=== PATIENT | male | born 1970 | race American Indian/Alaskan Native ===

== ENCOUNTER 2022-02-03 12:20 | Emergency (ER) | payer SELFPAY ==
[2022-02-03 13:19] LABS: Bacteria,Urine 1+ /HPF (Negative); Bilirubin,Urine NEG (Negative); Blood,Urine NEG (Negative); Color,Urine Yellow (Yellow); Mucus,Urine FEW /HPF; Urobilinogen,Urine < 2.0 mg/dL (<2.0)
--- NOTE | 2022-02-03 13:39 | Emergency Department Report ---
ED Male HPI - General Chief complaint: Urogenital-Male Stated complaint: SWOLLEN GENITALS Time Seen by Provider: 02/03/22 12:35 Source: patient Mode of arrival: Ambulatory Limitations: No Limitations - History of Present Illness Initial comments: 51-year-old black male with no past medical history presents to the emergency department for evaluation of penile itching and irritation. 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 Patient states he is" circumcised and he has had thick cottage cheeselike material around his penile area. He denies penile discharge, abdominal pain, dysuria, unprotected sex, and fever. He states that he use [id number] Neosporin cream to the area to improve the itching and irritation without improvement. MD Complaint: other (Penile itching and irritation) -: Gradual, week(s) (2.5) Location: penis Radiation: none Severity scale (0 -10): 0 swelling, rash. denies: discharge, mass, urinary retention, blood in urine, dysuria, fever, nausea/vomiting, incontinence - Related Data Sexually active: Yes Previous Rx's Medication Instructions Recorded Last Taken Type Clotrimazole 1% [Lotrimin 1%] 1 applic TP BID 14 Days #1 tube 02/03/22 Unknown Rx Fluconazole 150 mg PO ONCE #1 tab 02/03/22 Unknown Rx Sulfamethoxazole/Trimethoprim 1 each PO BID #14 tab 02/03/22 Unknown Rx [Bactrim DS TAB] Allergies Allergy/AdvReac Type Severity Reaction Status Date / Time No Known Allergies Allergy Verified 02/03/22 12:27 ED Review of Systems ROS: Stated complaint: SWOLLEN GENITALS Other details as noted in HPI Comment: All other systems reviewed and negative Constitutional: denies: chills, fever Respiratory: denies: shortness of breath Cardiovascular: denies: chest pain, palpitations Gastrointestinal: denies: abdominal pain, nausea, vomiting, diarrhea, hematemesis, melena, hematochezia Genitourinary: urgency, frequency. denies: dysuria, hematuria, discharge, testicular pain, testicular mass Skin: pruritus (To penis). denies: rash ED Past Medical Hx - Medications Home Medications: Home Medications Medication Instructions Recorded Confirmed Last Taken Type Clotrimazole 1% [Lotrimin 1%] 1 applic TP BID 14 Days #1 tube 02/03/22 Unknown Rx Fluconazole 150 mg PO ONCE #1 tab 02/03/22 Unknown Rx Sulfamethoxazole/Trimethoprim 1 each PO BID #14 tab 02/03/22 Unknown Rx [Bactrim DS TAB] ED Physical Exam - General Limitations: No Limitations General appearance: alert, in no apparent distress - Head Head exam: Present: atraumatic, normocephalic - Eye Eye exam: Present: normal appearance. Absent: conjunctival injection - Neck Neck exam: Present: normal inspection. Absent: tenderness - Respiratory Respiratory exam: Present: normal lung sounds bilaterally. Absent: respiratory distress, wheezes, rales, rhonchi, stridor, chest wall tenderness - Cardiovascular Cardiovascular Exam: Present: regular rate, normal heart sounds - GI/Abdominal GI/Abdominal exam: Present: soft, normal bowel sounds. Absent: distended, tenderness, guarding, rebound, rigid - exam: Absent: testicular tenderness, urethral discharge, scrotal swelling, circumcision External exam: Present: erythema, swelling, other (Of the foreskin pulled back, patient noted to have erythema and tenderness over entire penis. Patient noted to have some areas where skin is open but areas are not noted to be consistent with herpetic lesions.). Absent: lesions, lacerations, ecchymosis, bleeding - Extremities Exam Extremities exam: Present: normal inspection - Back Exam Back exam: Present: normal inspection. Absent: tenderness, CVA tenderness (R), CVA tenderness (L) - Neurological Exam Neurological exam: Present: alert, oriented X3 - Psychiatric Psychiatric exam: Present: normal affect, normal mood - Skin Skin exam: Present: warm, dry ED Course Vital Signs 02/03/22 13:56 Temperature 98.8 F Pulse Rate 88 Respiratory 20 Rate Blood Pressure 132/85 [Left] O2 Sat by Pulse 100 Oximetry ED Medical Decision Making - Medical Decision Making 51-year-old black male with no past medical history presents to the emergency department for evaluation of penile itching and irritation. 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 Patient states he is" circumcised and he has had thick cottage cheeselike material around his penile area. He denies penile discharge, abdominal pain, dysuria, unprotected sex, and fever. He states that he use [id number] Neosporin cream to the area to improve the itching and irritation without improvement. Description of symptoms along with the exam are consistent with balanitis. UA consistent with urinary tract infection. Patient will be treated with 7-day course of Bactrim along with one-time dose of Diflucan 150 mg and clotrimazole zone cream to place the penis for the next 2 weeks. Advised to take medications as prescribed and follow-up with primary care provider if no improvement or worsening symptoms. Is advised to return to the emergency department as needed. Critical care attestation.: If time is entered above; I have spent that time in minutes in the direct care of this critically ill patient, excluding procedure time. ED Disposition Clinical Impression: Balanitis UTI (urinary tract infection) Qualifiers: Urinary tract infection type: acute cystitis Hematuria presence: without hematuria Qualified Code(s): N30.00 - Acute cystitis without hematuria Disposition: 01 HOME / SELF CARE / HOMELESS Is pt being admited?: No Does the pt Need Aspirin: No Condition: Stable Instructions: Urinary Tract Infection, Adult, [id number], Balanitis Additional Instructions: Take medications as prescribed. Follow up with primary care provider for further evaluation and management. Return to ed ass needed. Prescriptions: Sulfamethoxazole/Trimethoprim [Bactrim DS TAB] 1 each PO BID #14 tab Fluconazole 150 mg PO ONCE #1 tab Clotrimazole 1% [Lotrimin 1%] 1 applic TP BID 14 Days #1 tube Referrals: BOLA LIMA MD [Referring] - 3-5 Days Time of Disposition: 13:39
[2022-02-03 13:58] VITALS: BP 132/85
== END 2022-02-03 14:20 | disposition home or self-care (01) ==
LOC: ED 12:20
DX: N48.1 Balanitis (principal); N39.0 Urinary tract infection, site not specified; Z79.899 Other long term (current) drug therapy
CPT/HCPCS: 81001; 87086; 99283